=== PATIENT | female | born 1945 | race Caucasian/White ===

== ENCOUNTER 2016-10-27 02:47 | Emergency (ER) | payer OTHER, BC ==
[~2016-10-27] VITALS: Ht 165.1 cm; Wt 61.9 kg
[2016-10-27] MEDS ORDERED: FLEXERIL10 MG PO (03:18)
[2016-10-27] MEDS ORDERED: LIDODERM 5% P1 PATCH TD (03:18)
[2016-10-27 03:48] VITALS: BP 175/89
[2016-10-28] MEDS ORDERED: TRAMADOL HCL50 MG PO (10:39)
== END 2016-10-27 03:49 | disposition home or self-care (01) ==
LOC: EME 02:47
DX: S76.011A Strain of muscle, fascia and tendon of right hip, initial encounter (principal); X50.9XXA Other and unspecified overexertion or strenuous movements or postures, initial encounter; Y93.H2 Activity, gardening and landscaping
CPT/HCPCS: 99281; 99283

== ENCOUNTER 2016-10-28 06:31 | Emergency (ER) | payer OTHER, BC ==
[~2016-10-28] VITALS: Ht 165.1 cm; Wt 62.1 kg
[~2016-10-28 06:31] MED LIST: FLEXERIL10 MG PO; LIDODERM 5% P1 PATCH TD
[2016-10-28 07:36] LABS: HEMATOCRIT 37.4 % (36.0-46.0); MCH 28.7 PG (29.0-34.0); MCHC 34.2 G/DL (30.0-36.0); MCV 83.9 FL (83-99); PLATELET COUNT 130 K/uL (156-360); RBC DIS.WIDTH-CV 12.3 % (11.8-14.6); RBC DIS.WIDTH-SD 37.6 % (39-53); RED BLOOD COUNT 4.46 M/uL (3.80-5.20); WHITE BLOOD COUNT 6.5 K/uL (4.1-10.2)
[2016-10-28 08:11] LABS: ANION GAP 10 MEQ/L (2-14); CHLORIDE 93 MEQ/L (99-109); POTASSIUM 3.8 MEQ/L (3.7-5.4); SAMPLE HEMOLYSIS CHECK 0; SAMPLE ICTERIC CHECK 0; SAMPLE LIPEMIA CHECK 0; SODIUM 128 MEQ/L (136-147); TOTAL BILIRUBIN 0.5 MG/DL (0.0-1.0)
[2016-10-28 08:16] LABS: ALKALINE PHOSPHATASE 79 IU/L (3-129); GFR ESTIMATE (CALCULATED) 58 mL/min/; GLUCOSE 83 mg/dL (70-99); UREA NITROGEN (BUN) 12 mg/dL (9-23)
[2016-10-28 08:53] LABS: C-REACTIVE PROTEIN 1.5 MG/L (0-10); CREATINE KINASE 47 IU/L (1-294)
[2016-10-28 10:01] LABS: ADD MIUA? NO; BILIRUBIN NEGATIVE; BLOOD NEGATIVE; COLOR COLORLESS ((YELLOW)); GLUCOSE (STRIP) NEGATIVE; KETONES 5; LEUKOCYTES NEGATIVE; NITRITE NEGATIVE; PROTEIN (STRIP) NEGATIVE; SPECIFIC GRAVITY 1.004 (1.000-1.030); UCUL ADDED? NO; UROBILINOGEN 0.2 MG/DL (0.2-1.0)
[2016-10-28] MEDS ORDERED: TRAMADOL HCL50 MG PO (10:39)
[2016-10-28 11:07] VITALS: BP 160/88
== END 2016-10-28 10:50 | disposition home or self-care (01) ==
LOC: EME 06:31
PROVIDERS: Nurse Practitioner Family
DX: M54.5 Low back pain (principal); M47.896 Other spondylosis, lumbar region; E87.1 Hypo-osmolality and hyponatremia; I10 Essential (primary) hypertension; M79.651 Pain in right thigh
CPT/HCPCS: 72202; 80053; 81003; 82550; 85027; 86140; 99281; 99284